=== PATIENT | female | born 1965 | race Caucasian/White ===

== ENCOUNTER 2021-02-21 16:44 | Emergency (ER) | payer BC ==
[~2021-02-21] VITALS: Ht 167.6 cm; Wt 66.2 kg
--- NOTE | 2021-02-21 17:19 | NUR ---
THIS IS A 55 YO F W/ C/O ANTERIOR UPPR NECK PAIN AND HEADACHE (RESOLVED). PT REPORTS HIGH BP AT HOME, IS COMPLIANT W/ RX. PT RESTING ON GURNEY W/ CALL LIGHT IN REACH, FAMILY AT BEDSIDE AND SIDE RAILS UPX2. CONNECTED TO ALL MONITORING. PT TACHYCARDIC AND HYPERTENSIVE, OTHER VS WDL. AT BEDSIDE.
[2021-02-21 18:08] LABS: BASOPHILS % (AUTO) 1 % (0-1); EOSINOPHILS % (AUTO) 2 % (1-7); LYMPHOCYTES % (AUTO) 25 % (22-44); MEAN CORPUSCULAR HEMOGLOBIN 28.4 pg (27.0-34.8); MEAN CORPUSCULAR HGB CONC 33.9 g/dL (32.4-35.8); MEAN PLATELET VOLUME 8.2 fL (7.4-10.4); MONOCYTES % (AUTO) 9 % (2-9); NEUTROPHILS % (AUTO) 63 % (42-75); PLATELET COUNT 384 x10^3/uL (130-400); RED BLOOD COUNT 5.38 x10^6/uL (3.82-5.3); RED CELL DISTRIBUTION WIDTH 13.3 % (9.6-15.2)
[2021-02-21 18:09] LABS: MD NO
[2021-02-21 18:12] LABS: ALANINE AMINOTRANSFERASE 20 U/L (12-78); ANION GAP 8 mmol/L (5-15); CALCIUM 9.1 mg/dL (8.5-10.1); CHLORIDE 107 mmol/L (98-107); CREATININE 0.87 mg/dL (0.55-1.02)
[2021-02-21 18:22] LABS: ALKALINE PHOSPHATASE 93 U/L (45-117); BILIRUBIN,TOTAL 0.4 mg/dL (0.2-1.0); T4 (THYROXINE) 9.7 mcg/dL (4.8-13.9); TROPONIN I < 0.015 ng/mL (0.000-0.045)
--- NOTE | 2021-02-21 18:40 | NUR ---
ALL TESTS RESULTED. PT IS UP FOR RECHECK AT THIS TIME. PT RESTING ON GURNEY W/ CALL LIGHT IN REACH AND FAMILY AT BEDSIDE. EL BYNUM TECH AT BEDSIDE FOR REPEAT EKG.
--- NOTE | 2021-02-21 18:57 | NUR ---
RECEIVED BS REPORT FROM WHITNEY MARKHAM TO ASSUME CARE OF PT. AT THIS TIME. DR. RIDDLE IN TO DISCUSS POC WITH PT.
--- NOTE | 2021-02-21 18:57 | NUR ---
REPORT GIVEN TO KULWINDER OLSON. PT RESTING ON GURNEY W/ CALL LIGHT IN REACH AND SIDE RAIL UPX1. RESP EVEN AND UNLABORED, NADN. AT BEDSIDE FOR RECHECK.
[2021-02-21 19:15] VITALS: BP 161/89
== END 2021-02-21 19:21 | disposition home or self-care (01) ==
LOC: ED 19:15
DX: G43.909 Migraine, unspecified, not intractable, without status migrainosus (principal); M54.2 Cervicalgia; R00.0 Tachycardia, unspecified; R07.9 Chest pain, unspecified; I10 Essential (primary) hypertension
CPT/HCPCS: 36415; 71045; 80053; 84436; 84443; 84484; 85025; 93005; 99285